=== PATIENT | female | born 1955 | race Caucasian/White ===

== ENCOUNTER 2017-01-02 12:29 | Inpatient (IN) | payer OTHER, MEDICAID ==
[2017-01-02 13:05] LABS: % IMMATURE GRANULYOCYTES 0.3 % (0.0-1.1); ABSOLUTE IMMATURE GRANULOCYTES 0.02 10^3/uL (0.00-0.10); ADD DIFF? NO; ADD MORPH? NO; ADD SCAN? NO; ATYPICAL LYMPHOCYTE FLAG 10 (0-99); FRAGMENT RBC FLAG 0 (0-99); HEMATOCRIT 42.1 % (38.0-47.0); HEMOGLOBIN 13.7 g/dL (12.6-16.3); LEFT SHIFT FLG 0 (0-99); LIPEMIA HEMOLYSIS FLAG 80 (0-99); MEAN CELL HEMOGLOBIN 30.6 pg (27.9-34.1); MEAN CELL HEMOGLOBIN CONCENTR. 32.5 g/dL (32.4-36.7); MEAN PLATELET VOLUME 9.9 fL (8.7-11.7); PLATELET CLUMPS FLAG 0 (0-99); PLATELET COUNT 247 10^3/uL (150-400); RED BLOOD CELL COUNT 4.48 10^6/uL (4.18-5.33); RED CELL DISTRIBUTION WIDTH 13.8 % (11.5-15.2)
--- NOTE | 2017-01-02 13:14 | EDPHY ---
H & P Time Seen by Provider: 01/02/17 12:58 HPI/ROS: CHIEF COMPLAINT: Cough, Shortness of breath HISTORY OF PRESENT ILLNESS: The patient is a 61-year-old female with multiple sclerosis presenting with cough and shortness of breath. Onset of nasal congestion, sore throat and cough 4 days ago. The patient had a chest x-ray 2 days ago that revealed pneumonia, according to her PCP. She was started on a 10 day course of antibiotics. She continues to have a productive cough and shortness of breath, gradually worsening. The patient has a history of MS, she feels more weak than usual. She is wheelchair-bound and needs assistance with transfers. She denies fever, nausea, vomiting. REVIEW OF SYSTEMS: A comprehensive 10 point review of systems is otherwise negative aside from elements mentioned in the history of present illness. Past Medical/Surgical History: MS, wheelchair bound, chronic merrill, PE, Pneumonia PSH: Cholecystectomy, Appendectomy, Tubal ligation, Social History: Lives in an apartment with her , has CNAs come to her home. Smoking Status: Never smoked Physical Exam: General Appearance: Alert, pleasant, nontoxic-appearing Eyes: Pupils equal and round, no conjunctival pallor or injection ENT, Mouth: Mucous membranes moist Neck: Normal inspection Respiratory: Mild tachypnea, Diffuse rhonchi Cardiovascular: Regular rate and rhythm Gastrointestinal: Abdomen is soft and non-tender Neurological: Alert and oriented, diffuse weakness, bilateral lower extremities greater than upper extremities. She has barely perceptible movement in toes as well as weakness in her upper extremities. Skin: Warm and dry, no rash Extremities: Nontender, pedal edema Psychiatric: Mood and affect normal Constitutional: Initial Vital Signs Temperature (C) 36.6 C 01/02/17 12:40 Heart Rate 60 01/02/17 12:40 Respiratory Rate 14 01/02/17 12:40 Blood Pressure 118/76 01/02/17 12:40 O2 Sat (%) 97 01/02/17 12:40 O2 Delivery Mode Nasal Cannula Allergies/Adverse Reactions: No Known Allergies Allergy (Unverified 01/02/17 12:39) Home Medications: Medication Instructions Recorded Ascorbic Acid [Vitamin C 500 mg 1,000 mg PO DAILY 07/30/16 (*)] Baclofen [Baclofen 10 mg (*)] 20 mg PO DAILY@12 07/30/16 Baclofen [Baclofen 10 mg (*)] 30 mg PO BID 07/30/16 Dabigatran Etexilate Mesyl 150 mg PO BID 07/30/16 [Pradaxa 150 MG (*)] Diazepam [Valium 5 MG (*)] 5 mg PO DAILY PRN 07/30/16 Furosemide [Lasix 20 MG (*)] 20 - 40 mg PO DAILY 07/30/16 Glatiramer Acetate [Copaxone] 20 mg SQ DAILY 07/30/16 HYDROcodone/APAP [[place] 1 tab PO Q6 PRN 07/30/16 (*)] Herbals/Supplements -Info Only 1 ea PO DAILY 07/30/16 Metaxalone [Skelaxin 800 mg (*)] 1,200 mg PO BID 07/30/16 Methadone HCl [Methadone 5 mg (*)] 5 mg PO BID 07/30/16 Methenamine Jake [Hiprex 1 gm (*)] 1 gm PO BID 07/30/16 Omeprazole 40 mg PO DAILY 07/30/16 Pregabalin [Lyrica 75mg (*)] 75 mg PO BID 07/30/16 Sertraline HCl [Zoloft 100mg (*)] 150 mg PO DAILY 07/30/16 Simvastatin [Zocor] 20 mg PO DAILY 07/30/16 Medical Decision Making - Diagnostics EKG Interpretation: EKG interpreted by me reveals normal sinus rhythm, normal axis, normal intervals , ST and T segments normal. Interpretation: normal EKG Imaging Results: Imaging Impressions Chest X-Ray 01/02/17 12:59 Impression: 1. Atherosclerotic aorta. 2. No acute pulmonary disease. Imaging: I viewed and interpreted images myself ED Course/Re-evaluation: The patient is a 61-year-old female with history of MS and recent diagnosis of pneumonia who presents with continued cough and diffuse weakness. The patient developed URI symptoms 3-4 days ago, she was seen by her PCP 2 days ago and had outpatient x-ray. She was told she had pneumonia and was placed on a 10 day course of antibiotics. She continues to have productive cough and shortness of breath. On exam she has diffuse rhonchi, plan for RT to help with breathing. The patient states she feels more weak than usual. She has barely perceptible movement in toes as well as weakness in her upper extremities. The patient lives at home with her and has nursing aids. The patient has a normal WBC and is afebrile. She does not meet SIRS criteria. Chest x-ray is negative for pneumonia. Plan to admit for further observation. No antibiotics given. 1:50 p.m. I consulted the hospitalist team, the patient will be admitted to Dr. Cuadra. Differential Diagnosis: Differential diagnosis includes though it is not limited to pneumonia, pneumothorax, pulmonary embolism, aortic dissection, pericarditis, acute coronary syndrome. - Data Points Laboratory Results: Laboratory Results 01/02/17 12:37 01/02/17 12:37 01/02/17 01/02/17 12:37 12:37 WBC 6.19 10^3/uL 10^3/uL (3.80-9.50) RBC 4.48 10^6/uL 10^6/uL (4.18-5.33) Hgb 13.7 g/dL g/dL (12.6-16.3) Hct 42.1 % % (38.0-47.0) MCV 94.0 fL fL (81.5-99.8) MCH 30.6 pg pg (27.9-34.1) MCHC 32.5 g/dL g/dL (32.4-36.7) RDW 13.8 % % (11.5-15.2) Plt Count 247 10^3/uL 10^3/uL (150-400) MPV 9.9 fL fL (8.7-11.7) Neut % (Auto) 47.1 % % (39.3-74.2) Lymph % (Auto) 43.1 % % (15.0-45.0) [place] % (Auto) 5.5 % % (4.5-13.0) Eos % (Auto) 3.4 % % (0.6-7.6) Baso % (Auto) 0.6 % % (0.3-1.7) Nucleat RBC Rel Count 0.0 % % (0.0-0.2) Absolute Neuts (auto) 2.91 10^3/uL 10^3/uL (1.70-6.50) Absolute Lymphs (auto) 2.67 10^3/uL 10^3/uL (1.00-3.00) Absolute Monos (auto) 0.34 10^3/uL 10^3/uL (0.30-0.80) Absolute Eos (auto) 0.21 10^3/uL 10^3/uL (0.03-0.40) Absolute Basos (auto) 0.04 10^3/uL 10^3/uL (0.02-0.10) Absolute Nucleated RBC 0.00 10^3/uL 10^3/uL (0-0.01) Immature Gran % 0.3 % % (0.0-1.1) Immature Gran # 0.02 10^3/uL 10^3/uL (0.00-0.10) Sodium 146 mEq/L H mEq/L (134-144) Potassium 3.7 mEq/L mEq/L (3.5-5.2) Chloride 104 mEq/L mEq/L (97-110) Carbon Dioxide 29 mEq/l mEq/l (22-31) Anion Gap 13 mEq/L mEq/L (8-16) BUN 14 mg/dL mg/dL (7-23) Creatinine 0.7 mg/dL mg/dL (0.6-1.0) Estimated GFR > 60 Glucose 91 mg/dL mg/dL (70-100) Calcium 9.1 mg/dL mg/dL (8.5-10.4) Troponin I < 0.012 ng/mL ng/mL (0-0.034) Medications Given: Discontinued Medications Sodium Chloride (Ns) 1,000 mls @ 0 mls/hr IV ONCE ONE PRN Reason: Wide Open Stop: 01/02/17 13:19 Last Admin: 01/02/17 13:22 Dose: 1,000 mls Departure - Departure Disposition: [facility] Inpatient Acute Clinical Impression: Exacerbation of multiple sclerosis Acute bronchitis Qualifiers: Bronchitis organism: unspecified organism Qualified Code(s): J20.9 - Acute bronchitis, unspecified Condition: Fair Report Scribed for: Charlene Ariza Report Scribed by: Rylee Marquis Date of Report: 01/02/17 Time of Report: 13:14 Physician Review and Approval Statement: 01/02/17 13:14 Portions of this note were transcribed by a medical scheduler. I personally performed the history, physical exam, and medical decision-making; and confirmed the accuracy of the information in the transcribed note.
[2017-01-02] MEDS ORDERED: NS 1,000 ML IV ONE (13:18)
[2017-01-02 13:19] LABS: ANION GAP 13 mEq/L (8-16); CALCIUM 9.1 mg/dL (8.5-10.4); CARBON DIOXIDE 29 mEq/l (22-31); CHLORIDE 104 mEq/L (97-110); CREATININE 0.7 mg/dL (0.6-1.0); GLOMERULAR FILTRATION RATE > 60; GLUCOSE 91 mg/dL (70-100); POTASSIUM 3.7 mEq/L (3.5-5.2); SODIUM 146 mEq/L (134-144)
[2017-01-02 13:31] LABS: TROPONIN I < 0.012 ng/mL (0-0.034)
--- NOTE | 2017-01-02 13:42 | CPEKG ---
Heart Rate: 59 RR Interval: 1017 P-R Interval: 196 QRSD Interval: 102 QT Interval: 440 QTC Interval: 436 P Roosevelt: 54 QRS Roosevelt: -2 T Wave Roosevelt: 14 EKG Severity - NORMAL ECG - EKG Impression: SINUS RHYTHM Electronically Signed By: Charlene Ariza 02-Jan-2017 20:22:29
[2017-01-02 14:15] LABS: COLOR PALE YELLOW; LEUKOCYTE ESTERASE,URINE TRACE (NEGATIVE); NITRITE,URINE NEGATIVE (NEGATIVE)
[2017-01-02] MEDS ORDERED: DIAZEPAM 5 MG TAB PO PRN (15:43)
[2017-01-02] MEDS ORDERED: HYDROCODONE/APAP 10/325 TAB PO PRN (15:43)
[2017-01-02] MEDS ORDERED: ACETAMINOPHEN 325 MG TAB PO PRN (15:45)
[2017-01-02] MEDS ORDERED: NS 1,000 ML IV SCH (15:45)
[2017-01-02] MEDS ORDERED: ONDANSETRON DISINTEGRATING 4 MG TAB PO PRN (15:45)
[2017-01-02] MEDS ORDERED: ONDANSETRON 4 MG/2 ML VIAL IVP PRN (15:45)
--- NOTE | 2017-01-02 16:24 | GHP ---
[f rep st] HISTORY AND PHYSICAL DATE OF ADMISSION: 01/02/2017 HISTORY OF PRESENT ILLNESS: The patient is a pleasant 61-year-old female with a history of multiple sclerosis, who presents with several days of respiratory type symptoms. She sounded like she cold- like symptoms for a couple days. She is concerned that she has pneumonia. She saw her primary care physician about 3 days ago and had a chest x-ray that was consistent with pneumonia. She was presc ribed an antibiotic, which she is not certain and she presents today because she has not stopped cou ghing. She denies fever, chills. She does occasionally cough with eating. No hemoptysis. She con tinues to take anticoagulation as she has a history of PE and DVT and has an IVC filter in place. No chest pain. No angina. REVIEW OF SYSTEMS: Complete 10-point review of systems conducted and negative except as noted in th e HPI. PAST MEDICAL HISTORY: 1. Multiple sclerosis. 2. Indwelling Ralph. 3. DVT and PE with IVC filter. 4. Chronic pain with continuous narcotic dependency. 5. Nocturnal hypoxemia. 6. She has had a history of cholecystectomy. ALLERGIES: She has known drug allergies. HOME MEDICATIONS: Furosemide 20-40 daily, ascorbic acid, baclofen, dabigatran, diazepam, glatiramer which is Copaxone, hydrocodone, methadone, methenamine, omeprazole, pregabalin, sertraline, simvast atin. SOCIAL HISTORY: She lives in [place] for a couple of years with her . She was previously li ving in [place]. Nonsmoker. No alcohol. FAMILY HISTORY: Reviewed and unremarkable. PHYSICAL EXAM: VITAL SIGNS: Presenting vitals, temp 36.6, blood pressure 118/76, pulse 60, breathi ng 14 times a minute, 97% on room air. GENERAL: No acute distress. HEENT: Sclerae anicteric. Or opharynx clear. Mucous membranes moist. NECK: Supple. No lymphadenopathy or JVD. LUNGS: Shows crackles at the right base, otherwise clear to auscultation. Good movement. No wheeze. HEART: S1 , S2, without murmurs. ABDOMEN: Soft, nontender, nondistended. LOWER EXTREMITIES: No edema. Steven ves nontender. SKIN: Without rash. NEUROLOGIC: Shows generalized weakness. No focal deficits. She states she is more weak than usual, and This is consistent with getting an infection. LABORATORY DATA: White count 6.2, hematocrit 42, platelets 247,000, all baseline. Venous lactate i s 0.8, sodium 146, potassium 3.7, chloride 104, bicarb 29, BUN 14, creatinine 0.7, glucose 91, tropo juma less than 0.012. UA is negative. Chest x-ray, interpreted by me, shows possible retrocardiac a nd/or right posterior infiltrate. It is pretty similar to her previous EKG dated July this y ear. An EKG interpreted by me shows sinus rhythm at 59 with normal axis and intervals. No ST or T-wave c hanges. I discussed the case with Dr. Aaliyah Castro. ASSESSMENT/PLAN: A 61-year-old female with multiple sclerosis, recent upper respiratory infection w ho presents with cough and right-sided crackles. 1. Pneumonia. This is suspected aspiration pneumonia. I will for now treat as community-acquired pneumonia with ceftriaxone and azithromycin. She has not been hospitalized in 6 months. Also check a respiratory virus panel. As I mentioned in the radiology report section, her chest x-ray is pret ty similar to her previous one but she does have crackles at the right base that do not clear with c oughing, which is potentially consistent with pneumonia. 2. Question VTE. She has respiratory complaints, history of pulmonary embolus. She has been antic oagulated and really has like upper respiratory infection symptoms, and I think the likelihood this represents VTE is low. We will not further evaluate this. 3. Multiple sclerosis. This is consistent with slightly worsening of symptoms from an intercurrent illness as opposed to a flare. I will not treat with steroid. She does not have a neurologist loc [facility] and it may be reasonable to try to hook her up with 1 while here. 4. Prophylaxis therapy, therapeutically anticoagulated. DISPOSITION: Inpatient status. /[id number]/MODL
[2017-01-02] MEDS: AZITHROMYCIN 250 MG TAB PO SCH (17:14)
[2017-01-02] MEDS: PREGABALIN 75 MG CAP PO SCH (20:04)
[2017-01-02] MEDS: DABIGATRAN ETEXILATE MESYL 150 MG CAP PO SCH (20:04)
[2017-01-02] MEDS: METAXALONE 800 MG TAB PO SCH (20:05)
[2017-01-02] MEDS: METHENAMINE HIPP 1 GM TAB PO SCH (20:06)
[2017-01-02] MEDS: METHADONE HCL 5 MG TAB PO SCH (20:06)
[2017-01-02] MEDS: BACLOFEN 10 MG TAB PO SCH (20:07)
[2017-01-03 05:09] LABS: % IMMATURE GRANULYOCYTES 0.2 % (0.0-1.1); ABSOLUTE IMMATURE GRANULOCYTES 0.01 10^3/uL (0.00-0.10); ADD DIFF? NO; ADD MORPH? NO; ADD SCAN? NO; ATYPICAL LYMPHOCYTE FLAG 0 (0-99); FRAGMENT RBC FLAG 0 (0-99); HEMATOCRIT 36.1 % (38.0-47.0); HEMOGLOBIN 11.6 g/dL (12.6-16.3); LEFT SHIFT FLG 0 (0-99); LIPEMIA HEMOLYSIS FLAG 80 (0-99); MEAN CELL HEMOGLOBIN 30.6 pg (27.9-34.1); MEAN CELL HEMOGLOBIN CONCENTR. 32.1 g/dL (32.4-36.7); MEAN CELL VOLUME 95.3 fL (81.5-99.8); MEAN PLATELET VOLUME 9.6 fL (8.7-11.7); PLATELET CLUMPS FLAG 0 (0-99); PLATELET COUNT 212 10^3/uL (150-400); RED BLOOD CELL COUNT 3.79 10^6/uL (4.18-5.33)
[2017-01-03 05:13] LABS: ANION GAP 7 mEq/L (8-16); CALCIUM 8.7 mg/dL (8.5-10.4); CARBON DIOXIDE 30 mEq/l (22-31); CHLORIDE 108 mEq/L (97-110); CREATININE 0.7 mg/dL (0.6-1.0); GLOMERULAR FILTRATION RATE > 60; GLUCOSE 74 mg/dL (70-100); POTASSIUM 3.7 mEq/L (3.5-5.2); SODIUM 145 mEq/L (134-144)
[2017-01-03] MEDS ORDERED: NON-FORMULARY NEW DRUG (Simvastatin [Zocor] 20 MG) PO SCH (09:00)
[2017-01-03] MEDS ORDERED: Herbals/Supplements -Info Only PO SCH (09:00)
[2017-01-03] MEDS: ATORVASTATIN CALCIUM 10 MG TAB PO SCH (10:00)
[2017-01-03] MEDS: METAXALONE 800 MG TAB PO SCH ×2 (10:00→20:23)
[2017-01-03] MEDS: SERTRALINE HCL 100 MG TAB PO SCH (10:00)
[2017-01-03] MEDS: METHENAMINE HIPP 1 GM TAB PO SCH ×2 (10:01→20:25)
[2017-01-03] MEDS: DABIGATRAN ETEXILATE MESYL 150 MG CAP PO SCH ×2 (10:01→20:24)
[2017-01-03] MEDS: PREGABALIN 75 MG CAP PO SCH ×2 (10:02→20:20)
[2017-01-03] MEDS: AZITHROMYCIN 250 MG TAB PO SCH (10:02)
[2017-01-03] MEDS: BACLOFEN 10 MG TAB PO SCH ×3 (10:02→20:22)
[2017-01-03] MEDS: METHADONE HCL 5 MG TAB PO SCH ×2 (10:03→20:21)
[2017-01-03] MEDS: PANTOPRAZOLE SODIUM 40 MG TAB PO SCH (10:04)
[2017-01-03] MEDS: ASCORBIC ACID 500 MG TAB PO SCH (10:06)
--- NOTE | 2017-01-03 11:42 | HOSPPROG ---
Hospitalist Progress Note Assessment/Plan: 61 yo female with advance MS admitted for right posterior CAP. Appears to be responding favorably to Rocephin and Azithromycin #right posterior CAP: -some concern for aspiration initially but responding well to current abx regimen -Day 2/-10 -Sputum and viral studies are pending -If worsens, would consider repeat CXR #Weakness, multifactorial etiology -improving -No need for steroids at this point -cont with PT/OT #Hx of PE on chronic anticoagulation: no acute issues. Cont with current AC #Chronic pain syndrome. No acute issues #Indwelling Ralph Dispo: still clinically symptomatic. Cont with current treatment regime. She wants to go home, but will need further hospitalization before she is stable to do so. Subjective: Still with cough. However, feels better. Less SOB. Weakness is improving. This is my first encounter with this patient. Objective: Vital Signs Temp Pulse Resp BP Pulse Ox 36.9 C 83 18 115/66 88 L 01/03/17 11:10 01/03/17 11:10 01/03/17 11:10 01/03/17 11:10 01/03/17 11:10 Microbiology 01/02/17 22:40 - Final Sputum, Induced/Suctioned 01/02/17 22:40 Respiratory Panel (PCR) - Final Nasal, Sinus - Anaerobic Tube/Swab No Organism Detected Laboratory Results 01/03/17 04:24 01/03/17 04:24 01/02/17 01/03/17 01/04/17 05:59 05:59 05:59 Intake Total 1425 Output Total 900 Balance 525 - Physical Exam Constitutional: no apparent distress, appears nourished, chronically ill appearing Eyes: PERRL, EOMI Ears, Nose, Mouth, Throat: moist mucous membranes, hearing normal Cardiovascular: regular rate and rhythym Respiratory: rhonchi Gastrointestinal: normoactive bowel sounds, soft, non-tender abdomen, no palpable masses Skin: warm, normal color Musculoskeletal: generalized weakness Neurologic: AAOx3 Psychiatric: interacting appropriately, not anxious, not encephalopathic ICD10 Worksheet Patient Problems: Problems Problem Status Onset Acute bronchitis Acute Exacerbation of multiple sclerosis Acute Bronchitis Acute Multiple sclerosis Acute Pneumonia Acute Urinary tract infection Acute
[2017-01-03] MEDS: GLATIRAMER ACETATE 20 MG SQ SCH (11:52)
[2017-01-04 05:40] LABS: % IMMATURE GRANULYOCYTES 0.2 % (0.0-1.1); ABSOLUTE IMMATURE GRANULOCYTES 0.01 10^3/uL (0.00-0.10); ADD DIFF? NO; ADD MORPH? NO; ADD SCAN? NO; ATYPICAL LYMPHOCYTE FLAG 0 (0-99); FRAGMENT RBC FLAG 0 (0-99); HEMATOCRIT 37.4 % (38.0-47.0); HEMOGLOBIN 12.2 g/dL (12.6-16.3); LEFT SHIFT FLG 0 (0-99); LIPEMIA HEMOLYSIS FLAG 80 (0-99); MEAN CELL HEMOGLOBIN 30.5 pg (27.9-34.1); MEAN CELL HEMOGLOBIN CONCENTR. 32.6 g/dL (32.4-36.7); MEAN CELL VOLUME 93.5 fL (81.5-99.8); MEAN PLATELET VOLUME 9.2 fL (8.7-11.7); PLATELET CLUMPS FLAG 10 (0-99); PLATELET COUNT 206 10^3/uL (150-400); RED CELL DISTRIBUTION WIDTH 13.7 % (11.5-15.2)
[2017-01-04 05:59] LABS: ANION GAP 8 mEq/L (8-16); CALCIUM 8.7 mg/dL (8.5-10.4); CARBON DIOXIDE 28 mEq/l (22-31); CHLORIDE 107 mEq/L (97-110); CREATININE 0.6 mg/dL (0.6-1.0); GLOMERULAR FILTRATION RATE > 60; GLUCOSE 79 mg/dL (70-100); POTASSIUM 3.6 mEq/L (3.5-5.2); SODIUM 143 mEq/L (134-144)
[2017-01-04] MEDS: PANTOPRAZOLE SODIUM 40 MG TAB PO SCH (08:01)
[2017-01-04] MEDS: METAXALONE 800 MG TAB PO SCH (08:01)
[2017-01-04] MEDS: DABIGATRAN ETEXILATE MESYL 150 MG CAP PO SCH (08:01)
[2017-01-04] MEDS: ATORVASTATIN CALCIUM 10 MG TAB PO SCH (08:01)
[2017-01-04] MEDS: AZITHROMYCIN 250 MG TAB PO SCH (08:02)
[2017-01-04] MEDS: METHADONE HCL 5 MG TAB PO SCH (08:02)
[2017-01-04] MEDS: PREGABALIN 75 MG CAP PO SCH (08:02)
[2017-01-04] MEDS: BACLOFEN 10 MG TAB PO SCH ×2 (08:02→12:36)
[2017-01-04] MEDS: METHENAMINE HIPP 1 GM TAB PO SCH (08:02)
[2017-01-04] MEDS: ASCORBIC ACID 500 MG TAB PO SCH (08:02)
[2017-01-04] MEDS: SERTRALINE HCL 100 MG TAB PO SCH (08:02)
[2017-01-04 08:26] VITALS: BP 120/80; PULSE 70; RESP 16; TEMP 98.1
--- NOTE | 2017-01-04 09:25 | PDIAF ---
- Diagnosis Diagnosis: pna Code Status: Full Code - Medication Management Discharge Medications: Medications to Continue on Transfer Ascorbic Acid [Vitamin C 500 mg (*)] 1,000 mg PO DAILY 07/30/16 [Last Taken ] Baclofen [Baclofen 10 mg (*)] 20 mg PO DAILY@12 07/30/16 [Last Taken 01/01/17] Baclofen [Baclofen 10 mg (*)] 30 mg PO BID 07/30/16 [Last Taken 01/02/17] Dabigatran Etexilate Mesyl [Pradaxa 150 MG (*)] 150 mg PO BID 07/30/16 [Last Taken 01/02/17] Diazepam [Valium 5 MG (*)] 5 mg PO DAILY PRN 07/30/16 [Last Taken 07/29/16] Furosemide [Lasix 20 MG (*)] 20 - 40 mg PO DAILY 07/30/16 [Last Taken 01/02/17 20mg] Glatiramer Acetate [Copaxone] 20 mg SQ DAILY 07/30/16 [Last Taken 01/01/17] HYDROcodone/APAP 10/325 [[place] 10/325 (*)] 1 tab PO Q6 PRN 07/30/16 [Last Taken 07/29/16] Herbals/Supplements -Info Only 1 ea PO DAILY 07/30/16 [Last Taken Unknown] Metaxalone [Skelaxin 800 mg (*)] 1,200 mg PO BID 07/30/16 [Last Taken 01/02/17] Methadone HCl [Methadone 5 mg (*)] 5 mg PO BID 07/30/16 [Last Taken 01/02/17] Methenamine Jake [Hiprex 1 gm (*)] 1 gm PO BID 07/30/16 [Last Taken 01/02/17] Omeprazole 40 mg PO DAILY 07/30/16 [Last Taken 01/02/17] Pregabalin [Lyrica 75mg (*)] 75 mg PO BID 07/30/16 [Last Taken 01/02/17] Sertraline HCl [Zoloft 100mg (*)] 150 mg PO DAILY 07/30/16 [Last Taken 01/02/17] Simvastatin [Zocor] 20 mg PO DAILY 07/30/16 [Last Taken 01/02/17] Acetaminophen [Tylenol 325mg (*)] 650 mg PO Q4HRS PRN #0 tab 01/04/17 [Last Taken Unknown] Azithromycin [Zithromax] 500 mg PO DAILY #3 tab 01/04/17 [Last Taken Unknown] levOFLOXACIN [levAQUIN (*)] 750 mg PO DAILY #7 tab 01/04/17 [Last Taken Unknown] Discharge Medications: Refer to the Discharge Home Medication list for PRN reason. PICC Care - Routine: N/A - Orders Services needed: Home Care, Registered Nurse, Physical Therapy, Occupational Therapy Home Care Face to Face: I certify that this patient was under my care and that I had the required [id number] encounter meeting the encounter requirements on the discharge day. My findings support the fact that the patient is homebound as defined in CMS Chapter 7 Medicare Benefits Manual 30.1.1, The condition of the patient is such that there exists a normal inability to leave home and consequently, leaving home would require a considerable and taxing effort. Diet Texture: Dysphagia 3 - Advanced - Moist, Bite-Size, [place] Thick Liquids, Meds Whole in Puree - Follow Up Care Current Providers and Referrals: Patient,NotPresent [Unknown] - As per Instructions
[2017-01-04] MEDS: GLATIRAMER ACETATE 20 MG SQ SCH (10:12)
[2017-01-04 11:13] VITALS: O2SAT 86
--- NOTE | 2017-01-04 15:19 | GDS ---
[f rep st] DISCHARGE SUMMARY DISCHARGE DIAGNOSES: 1. Community-acquired pneumonia. 2. Weakness with severe multiple sclerosis. 3. History of pulmonary emboli, on chronic anticoagulation. 4. Chronic pain syndrome. 5. Chronic indwelling catheter secondary to neurogenic bladder. PHYSICAL EXAM: GENERAL: The patient is alert. VITAL SIGNS: Afebrile at 36.7, pulse is 70, respir atory rate 16, blood pressure is 120/80. She is saturating 92% on 2 L and 86% on room air. I have seen and evaluated the patient on the day of discharge. HOSPITAL COURSE: The patient is a 61-year-old female who has advanced multiple sclerosis, who prese nted to the emergency room with complaints of shortness of breath. She was evaluated and diagnosed with: 1. Community-acquired pneumonia. During this hospitalization, she has responded well to Rocephin a nd azithromycin. She will be discharged with Levaquin to continue course of antibiotics in the outp atient setting, and follow up with her primary care physician in 7-10 days to assure that her pneumo remington has completely resolved. 2. Weakness. The patient does have severe multiple sclerosis at baseline. She has multiple caregi vers at home and in the outpatient setting. She will continue with home health care, physical thera py, as well as occupational therapy. 3. History of pulmonary emboli. She is on chronic anticoagulation with no need for further evaluat ion at this time. 4. Chronic pain syndrome. She has no acute pain exacerbations prior to disposition. 5. Indwelling Ralph. This is secondary to the patient's neurogenic bladder and multiple sclerosis. There is no need for intervention currently. DISPOSITION: The patient will be discharged home with supplemental oxygen and her home care provide rs. She is comfortable and in agreement with this plan, and wants to get back to her normal routine . FOLLOWUP: Followup will be with her primary care physician as well as home health care, physical th erapy and occupational therapy. DISCHARGE MEDICATIONS: I have not discontinued any of the patient's previously prescribed home medi cations. I have written her a prescription for Levaquin at the time of disposition, 750 mg, to comp lete a 7-day course for community-acquired pneumonia. I spent greater than 35 minutes in the care, coordination, and management of this patient's disposit ion. /[id number]/MODL
== END 2017-01-04 13:18 | disposition home health service (06) | DRG 194 ==
LOC: EDUNIT# → F3N 16:08
PROVIDERS: ADMIT Internal Medicine; ATTEND Internal Medicine
DX: J18.9 Pneumonia, unspecified organism (principal); G35 Multiple sclerosis; F11.20 Opioid dependence, uncomplicated; G89.4 Chronic pain syndrome; N31.9 Neuromuscular dysfunction of bladder, unspecified; Z86.711 Personal history of pulmonary embolism; Z79.01 Long term (current) use of anticoagulants
CPT/HCPCS: 92610-GN; G8996-GN-CJ; G8997-GN-CI; J0696